=== PATIENT | male | born 1955 | race Caucasian/White ===

== ENCOUNTER → 2024-01-27 09:40 | Outpatient (REF) | payer MEDICARE, SELFPAY | LOC: RCS 09:40 | PROVIDERS: ATTENDING PHYSICIAN Internal Medicine Cardiovascular Disease; FAMILY PHYSICIAN Nurse Practitioner Family | DX: I10 Essential (primary) hypertension (principal); E78.00 Pure hypercholesterolemia, unspecified; E11.9 Type 2 diabetes mellitus without complications | CPT/HCPCS: 93017; 93350 ==

== ENCOUNTER → 2025-02-27 07:31 | Outpatient (REF) | payer MEDICARE, SELFPAY | LOC: SDSPAT 07:31 | PROVIDERS: ATTENDING PHYSICIAN Orthopaedic Surgery Hand Surgery; FAMILY PHYSICIAN Nurse Practitioner Family | DX: S46.211A Strain of muscle, fascia and tendon of other parts of biceps, right arm, initial encounter (principal) | CPT/HCPCS: 36415; 93005 ==

== ENCOUNTER 2025-02-28 05:59 | Day surgery (SDC) | payer MEDICARE, SELFPAY ==
--- NOTE | 2025-02-26 15:10 | PTCARENOTE ---
Patients last dose of Jardiance 02/25- surgery is 02/28- Dr. Cody notified- no further interventions required
[2025-02-27 13:03] VITALS: BMI 30.9
[2025-02-28] VITALS (8 sets, daily range): BP systolic 104–154; BP diastolic 78–96; BMI 30.9
[2025-02-28 06:36] LABS: Glucose - Point of Care 174 mg/dl (70-99)
[2025-02-28] MEDS: NORMOSOL-R/PLASMALYTE-A 1000 IV (06:36)
[2025-02-28] MEDS: CELEBREX 200 MG PO (06:36)
[2025-02-28] MEDS: TYLENOL 1000 MG PO (06:36)
[2025-02-28 08:31] LABS: Glucose - Point of Care 200 mg/dl (70-99)
[2025-02-28] MEDS: DILAUDID 0.25 MG IV (08:36)
[2025-02-28] MEDS: NOVOLOG vial 2 UNITS SC (08:45)
[2025-02-28] MEDS: ROXICODONE 5 MG PO (09:29)
== END 2025-02-28 10:03 | disposition home or self-care (01) ==
LOC: SDS 05:59
PROVIDERS: ATTENDING PHYSICIAN Orthopaedic Surgery Hand Surgery
DX: S46.211A Strain of muscle, fascia and tendon of other parts of biceps, right arm, initial encounter (principal); X58.XXXA Exposure to other specified factors, initial encounter
CPT/HCPCS: 24342; 82962; C1713